=== PATIENT | male | born 1990 | race Caucasian/White ===

== ENCOUNTER 2020-07-24 15:23 | Inpatient (IN) | payer BC, SELFPAY ==
[~2020-07-24] VITALS: Ht 170.2 cm; Wt 81.6 kg
[2020-07-24 15:57] VITALS: BP 130/81
--- NOTE | 2020-07-24 16:10 | NUR ---
Patient in tent for covid precautions
--- NOTE | 2020-07-24 16:15 | NUR ---
30 y/o male from home + covid c/o cough, difficulty breathing, and body aches x 10 day. Does not appear in distress. RR even and unlabored. Skin warm and dry. Denies n/v/d. Awake and alert. VSS medhx: denies
--- NOTE | 2020-07-24 16:25 | NUR ---
Patient ambulated to bed 9
[2020-07-24 16:46] LABS: BASOPHILS % (AUTO) 0.5 % (0.0-2.0); EOSINOPHILS % (AUTO) 0.1 % (0.0-4.0); HEMATOCRIT 42.3 % (36-52); HEMOGLOBIN 14.8 g/dL (12.0-18.0); LYMPHOCYTES # (AUTO) 0.7 K/uL (2.0-11.5); LYMPHOCYTES % (AUTO) 8.3 % (20.5-51.1); MEAN CORPUSCULAR HEMOGLOBIN 32 pg (27-31); MEAN CORPUSCULAR HGB CONC 35 g/dL (33-37); MEAN CORPUSCULAR VOLUME 91.7 fL (80-94); MONOCYTES # (AUTO) 0.2 K/uL (0.8-1.0); MONOCYTES % (AUTO) 2.6 % (1.7-9.3); NEUTROPHILS # (AUTO) 7.2 K/uL (1.8-7.7); NEUTROPHILS % (AUTO) 88.5 % (42.2-75.2); PLATELET COUNT (AUTO) 261 K/uL (140-450); RED BLOOD CELL COUNT(AUTO) 4.62 MIL/uL (4.20-6.10); RED CELL DISTRIBUTION WIDTH 12.4 % (11.6-13.7); WHITE BLOOD COUNT (AUTO) 8.1 K/uL (4.8-10.8)
--- NOTE | 2020-07-24 16:47 | NUR ---
COVID, DIANE, FLU, AND RSV SWAB SENT TO LAB
--- NOTE | 2020-07-24 16:48 | NUR ---
RR 35, SPO2 98% ON RA, LABORED BREATHING
[2020-07-24] MEDS ORDERED: AZITHROMYCIN 1,000 MG in DEXTROSE 5% 500 ML IV ONE (16:55)
[2020-07-24] MEDS ORDERED: DEXAMETHASONE 10 MG/ML VIAL IVP ONE (16:55)
[2020-07-24 17:12] LABS: PROTHROMBIN TIME 10.3 secs (10.8-13.4)
[2020-07-24 17:13] LABS: ALBUMIN 3.3 g/dL (3.4-5.0); ANION GAP 11.8 (8-16); CARBON DIOXIDE 28.3 mmol/L (21-32); CREATININE 1.1 mg/dL (0.6-1.3); POTASSIUM 3.1 mmol/L (3.5-5.1); TOTAL BILIRUBIN 0.5 mg/dL (0.0-1.0)
[2020-07-24] MEDS ORDERED: cefTRIAXone 1,000 MG VIAL ONE (17:18)
[2020-07-24] MEDS ORDERED: ENOXAPARIN 40 MG/0.4 ML SYR SUBQ ONE (17:20)
[2020-07-24 17:21] LABS: C-REACTIVE PROTEIN QUANT 22.1 mg/dL (0.0-0.9)
[2020-07-24] MEDS ORDERED: POTASSIUM CHLORIDE 10 MEQ TABER PO ONE (17:25)
[2020-07-24 17:40] LABS: CKMB RELATIVE INDEX 0.1 (0.0-2.5); CREATINE KINASE MB 0.6 ng/mL (0-3.6)
[2020-07-24] MEDS ORDERED: OSELTAMIVIR PHOSPHATE 75 MG CAP PO ONE (17:55)
[2020-07-24] MEDS ORDERED: HYDROcodone/APAP 5/325 MG 1 TAB TAB PO PRN (18:55)
[2020-07-24] MEDS ORDERED: ONDANSETRON 4 MG/2 ML VIAL IM/IVP PRN (18:55)
[2020-07-24] MEDS ORDERED: ACETAMINOPHEN 325 MG TAB PO PRN (18:55)
[2020-07-24] MEDS ORDERED: SODIUM PHOS / POTASSIUM PHOS 1 PKT PDR PO PRN (18:55)
[2020-07-24] MEDS ORDERED: POTASSIUM CHLORIDE 40 MEQ, LIDOCAINE MPF 1% 25 MG in NACL 0.9% 250 ML IV PRN (18:55)
[2020-07-24] MEDS ORDERED: MAG SULF 2000 MG/WATER PREMIX 50 ML IV PRN (18:55)
[2020-07-24 18:59] LABS: APPEARANCE,URINE HAZY (CLEAR); BILIRUBIN,URINE 1+ (NEGATIVE); BLOOD, URINE NEGATIVE (NEGATIVE); COLOR,URINE YELLOW (YELLOW); LEUKOCYTE ESTERASE ,URINE NEGATIVE (NEGATIVE); NITRITE, URINE NEGATIVE (NEGATIVE); UGLUCOSE NEGATIVE (NEGATIVE)
--- NOTE | 2020-07-24 19:18 | NUR ---
REPORT GIVEN TO KEDAR COLLINS, ALONDRA OF CARE AT THIS TIME
--- NOTE | 2020-07-24 19:30 | NUR ---
RECEIVED REPORT FROM LUISANA COLLINS
[2020-07-24 19:41] LABS: MAGNESIUM 2.7 mg/dL (1.8-2.4); PHOSPHORUS 2.6 mg/dL (2.5-4.9)
--- NOTE | 2020-07-24 19:50 | NUR ---
PT O2 SAT ON R/A IS 97% HOWEVER PT STATES HE FEELS SOB, PUT N/C ON PT AT 2L, PT STATES THAT HELPED WITH THE SOB FEELING. PT REMAINS ON BEDSIDE MONITOR. RESPIRATIONS REGULAR AND EVEN. WILL CONTINUE TO MONITOR PT
[2020-07-24] MEDS ORDERED: DILTIAZEM 25 MG/5 ML VIAL IVP SCH (22:25)
[2020-07-24] MEDS ORDERED: AMIODARONE 200 MG TAB PO SCH (22:25)
--- NOTE | 2020-07-24 23:05 | NUR ---
PT RESTING QUIETLY, REMAINS ON BEDSIDE MONITOR AND O2 AT 2L. PT DENIES ANY DISTRESS AT THIS TIME.
--- NOTE | 2020-07-25 03:14 | NUR ---
PT SLEEPING. REMAINS ON BEDSIDE MONITOR. RESPIRATIONS REGULAR EVEN AND UNLABORED.
[2020-07-25] MEDS: MORPHINE SULFATE 2 MG/ML SYR IVP PRN ×2 (04:29→08:58)
--- NOTE | 2020-07-25 04:29 | NUR ---
PT C/O LOWER BACK PAIN, REQUESTED PAIN MED, MEDICATED ORDERED. PT ALSO REQUESTING SOMETHING FOR HIS COUGH, NO ORDER FOR COUGH MEDS. WILL CONTACT
[2020-07-25] MEDS ORDERED: guaiFENesin 20 MG/ML UDC PO PRN (05:30)
--- NOTE | 2020-07-25 05:33 | NUR ---
PT STATES HIS BACK IS FEELING BETTER. REPOSITIONED FOR COMFORT
--- NOTE | 2020-07-25 07:23 | NUR ---
Pt report given to GUY COLLINS. Transfer of care at this time.
--- NOTE | 2020-07-25 07:24 | NUR ---
Report received from KARINA Tan, transfer of care at this time.
--- NOTE | 2020-07-25 07:36 | NUR ---
Pt resting, HOB elevated, emptied urinal 250cc clear yellow. VSS, will continue to monitor.
--- NOTE | 2020-07-25 07:36 | NUR ---
Note peterson in EDM - 07/25/20 at 0821 by [facility] [place] Pt resting, HOB elevated, emptied urinal 250cc clear yellow. VSS, will continue to monitor.
--- NOTE | 2020-07-25 08:10 | NUR ---
PATIENT HAS BEEN SCREENED AND CATEGORIZED MODERATE NUTRITION RISK. PATIENT WILL BE SEEN WITHIN 3-5 DAYS OF ADMISSION. 07/27/20 - 07/29/[address]
--- NOTE | 2020-07-25 08:49 | NUR ---
Pt states pain 8/10 to lower back, PRN morphine given.
[2020-07-25] MEDS ORDERED: DOCUSATE SODIUM 100 MG GELCAP PO SCH (09:00)
[2020-07-25] MEDS ORDERED: ASCORBIC ACID 500 MG TAB PO SCH (09:00)
[2020-07-25] MEDS ORDERED: VITAMIN D 400 IU TAB PO SCH (09:00)
[2020-07-25] MEDS ORDERED: OSELTAMIVIR PHOSPHATE 75 MG CAP PO SCH (09:00)
[2020-07-25] MEDS ORDERED: FAMOTIDINE 20 MG TAB PO SCH (09:00)
[2020-07-25] MEDS ORDERED: DEXAMETHASONE 4 MG/ML VIAL IVP SCH (09:00)
[2020-07-25] MEDS ORDERED: ENOXAPARIN 40 MG/0.4 ML SYR SUBQ SCH (09:00)
--- NOTE | 2020-07-25 09:51 | NUR ---
Spoke with pharmacy for missing lovenox 40mg for 0900.
--- NOTE | 2020-07-25 10:20 | NUR ---
Pt resting, HOB elevated, VSS, will continue to monitor.
--- NOTE | 2020-07-25 12:34 | NUR ---
Pt awake, provided with lunch tray, HOB elevated, VSS, will continue to monitor.
--- NOTE | 2020-07-25 14:32 | NUR ---
Pt requested blanket, HOB elevated, VSS, will continue to comfort.
--- NOTE | 2020-07-25 16:54 | NUR ---
Spoke with Lu, for pt updates [phone]
--- NOTE | 2020-07-25 18:21 | NUR ---
Dr. Moseley at pt bedside for evaluation.
--- NOTE | 2020-07-25 18:28 | NUR ---
Pt sleeping on left side, HOB elevated, VSS, will continue to monitor.
--- NOTE | 2020-07-25 19:21 | NUR ---
Gave report to KARINA Hernandez, transfer of care at this time.
--- NOTE | 2020-07-25 19:21 | NUR ---
RECEIVED REPORT FROM KARINA TOVAR FOR CONTINUATION OF CARE.
[2020-07-25] MEDS ORDERED: VITD400 PO (20:13)
[2020-07-25] MEDS ORDERED: ACET-1182 PO (20:13)
[2020-07-25] MEDS ORDERED: METH4TAB1 PO (20:13)
[2020-07-25] MEDS ORDERED: DEC4 PO (20:13)
[2020-07-25] MEDS ORDERED: TAM75 PO (20:13)
[2020-07-25] MEDS ORDERED: VITC500 PO (20:13)
[2020-07-25] MEDS ORDERED: FAMO20TA13 PO (20:13)
[2020-07-25] MEDS ORDERED: ROB PO (20:13)
--- NOTE | 2020-07-25 20:45 | NUR ---
PT IS ON HIS PHONE. VISIBLE RISE AND FALL OF CHEST NOTED. NO DISTRESS NOTED. PT IS CONNECTED TO THE HEALTH UNIT CLERK. SAO2@95%. BED IS LOCKED AND IN LOWEST POSITION. SIDE RAILSX1. WILL CONTINUE TO MONITOR.
[2020-07-25 22:55] VITALS: BP 131/89
== END 2020-07-25 22:00 | disposition home or self-care (01) | DRG 177 ==
LOC: MED 15:23 → MTU 18:53
PROVIDERS: ADMIT Hospitalist; ATTEND Hospitalist
DX: U07.1 COVID-19 (principal); J12.82 Pneumonia due to coronavirus disease 2019; J80 Acute respiratory distress syndrome; E87.1 Hypo-osmolality and hyponatremia; E87.6 Hypokalemia; R73.9 Hyperglycemia, unspecified
CPT/HCPCS: 36415; 36600; 71045; 80053; 81001; 82550; 82553; 82728; 82803; 83036; 83605; 83615; 83735; 83880; 84100; 84484; 85025; 85379; 85384; 85610; 85730; 86140; 87040; 87086; 87420; 87804; 93005; J0456; J0696; J1100; J1650; J2270; J2405; J7060; U0003

== ENCOUNTER 2020-12-07 12:05 | Emergency (ER) | payer BC, SELFPAY ==
[~2020-12-07] VITALS: Ht 170.2 cm; Wt 95.3 kg
[~2020-12-07 12:05] MED LIST: ACET-1182 PO; DEC4 PO; FAMO20TA13 PO; METH4TAB1 PO; ROB PO; TAM75 PO; VITC500 PO; VITD400 PO
[2020-12-07 12:09] VITALS: BP 153/99
--- NOTE | 2020-12-07 12:19 | NUR ---
30 Y/O M BIB SELF FROM HOME, C/O SHARP CONSTANT LT SIDE PAIN FOR 3 WEEKS. DENIES N/V/D. WHEN AMBULATING OR COUGHING, PAIN INCREASES. DENIES COUGH, FEVERS, SOB AND CHEST PAIN. LUNG SOUNDS CLEAR TO AUSUCULATION. RX: TOOK IBUPROFEN 800 MG WITH RELIEF LAST NIGHT PMH: COVID (JUN 2020) ALLERGY: LATEX (SKIN SWELLING, ITCHING)
--- NOTE | 2020-12-07 12:20 | NUR ---
DR ZAMORANO AT BEDSIDE EXAMINING PT
[2020-12-07] MEDS ORDERED: ACETAMINOPHEN 325 MG TAB PO ONE (12:25)
[2020-12-07] MEDS ORDERED: KETOROLAC 60 MG/2 ML VIAL IM ONE (12:25)
--- NOTE | 2020-12-07 12:29 | NUR ---
PT TAKEN TO XRAY VIA W/C
--- NOTE | 2020-12-07 12:35 | NUR ---
PT RETURNED FROM XRAY
[2020-12-07] MEDS ORDERED: NAPR-54 PO (13:22)
[2020-12-07] MEDS ORDERED: LID5T TP (13:22)
[2020-12-07 13:25] VITALS: BP 153/99
--- NOTE | 2020-12-07 13:25 | NUR ---
Patient discharged with v/s stable. Written and verbal after care instructions given and explained. Patient alert, oriented and verbalized understanding of instructions. Ambulatory with steady gait. All questions addressed prior to discharge. ID band removed. Patient advised to follow up with PMD. Rx of LIDODERM 5% PATCH AND NAPROSYN given. Patient educated on indication of medication including possible reaction and side effects. Opportunity to ask questions provided and answered.
== END 2020-12-07 13:25 | disposition home or self-care (01) ==
LOC: MED 12:05
DX: R07.89 Other chest pain (principal); R09.1 Pleurisy; Z79.899 Other long term (current) drug therapy; Z91.040 Latex allergy status
CPT/HCPCS: 71046; 96372; 99283; J1885

== ENCOUNTER 2022-03-10 14:10 | Emergency (ER) | payer BC ==
[~2022-03-10] VITALS: Ht 170.2 cm; Wt 98.4 kg
[~2022-03-10 14:10] MED LIST changes: -ACET-1182 PO; -DEC4 PO; +LID5T TP; -METH4TAB1 PO; +NAPR-54 PO; -ROB PO; -TAM75 PO; -VITC500 PO
[2022-03-10 14:23] VITALS: BP 156/102
[2022-03-10] MEDS ORDERED: ALBUTEROL 0.083% 2.5 MG/3 ML NEBU INH ONE ×2 (14:37→14:40)
[2022-03-10] MEDS ORDERED: predniSONE 20 MG TAB PO ONE (14:40)
[2022-03-10 15:00] LABS: BASOPHILS % (AUTO) 0.3 % (0.0-2.0); EOSINOPHILS # (AUTO) 0.1 K/uL (0-0.4); EOSINOPHILS % (AUTO) 1.5 % (0.0-4.0); HEMATOCRIT 45.5 % (36-52); HEMOGLOBIN 15.9 g/dL (12.0-18.0); LYMPHOCYTES # (AUTO) 2.8 K/uL (2.0-11.5); LYMPHOCYTES % (AUTO) 42.1 % (20.5-51.1); MEAN CORPUSCULAR HEMOGLOBIN 32 pg (27-31); MEAN CORPUSCULAR HGB CONC 35 g/dL (33-37); MEAN CORPUSCULAR VOLUME 91.2 fL (80-94); MONOCYTES # (AUTO) 0.5 K/uL (0.8-1.0); MONOCYTES % (AUTO) 6.8 % (1.7-9.3); NEUTROPHILS # (AUTO) 3.3 K/uL (1.8-7.7); NEUTROPHILS % (AUTO) 49.3 % (42.2-75.2); PLATELET COUNT (AUTO) 274 K/uL (140-450); RED BLOOD CELL COUNT(AUTO) 4.99 MIL/uL (4.20-6.10); RED CELL DISTRIBUTION WIDTH 12.7 % (11.6-13.7); WHITE BLOOD COUNT (AUTO) 6.6 K/uL (4.8-10.8)
[2022-03-10 15:14] LABS: ALBUMIN 3.9 g/dL (3.4-5.0); ANION GAP 13.2 (8-16); ASPARTATE AMINOTRANSFERASE 24 U/L (15-37); CARBON DIOXIDE 24.2 mmol/L (21-32); CHLORIDE 108 mmol/L (98-107); CREATININE 0.8 mg/dL (0.6-1.3); GFR ARICAN-AMERICAN 143 mL/min (>90); GLUCOSE 98 mg/dL (74-106); POTASSIUM 3.4 mmol/L (3.5-5.1); SODIUM SERUM 142 mmol/L (136-145); TOTAL BILIRUBIN 0.5 mg/dL (0.0-1.0); UREA NITROGEN, BLOOD 9 mg/dL (7-18)
[2022-03-10] MEDS ORDERED: PRED20TA5 PO (15:45)
[2022-03-10] MEDS ORDERED: ALBU0.0912 INH (15:45)
[2022-03-10 16:19] VITALS: BP 141/82
== END 2022-03-10 16:19 | disposition home or self-care (01) ==
LOC: MED 14:10
DX: J45.909 Unspecified asthma, uncomplicated (principal); Z79.899 Other long term (current) drug therapy; Z79.1 Long term (current) use of non-steroidal anti-inflammatories (NSAID); Z91.040 Latex allergy status
CPT/HCPCS: 36415; 71045; 80053; 84484; 85025; 85379; 99284; J7512; J7613; Q0092; 94640

== ENCOUNTER 2023-04-21 13:06 | Emergency (ER) | payer BC, OTHER ==
[~2023-04-21] VITALS: Ht 170.2 cm; Wt 101.2 kg
[~2023-04-21 13:06] MED LIST changes: +ALBU0.0912 INH; +PRED20TA5 PO
[2023-04-21 14:25] VITALS: BP 144/99; PULSE 85; RESP 18; TEMP 98.3; O2SAT 96
[2023-04-21] MEDS ORDERED: ALBUTEROL SULFATE/IPRATROPIU 3 ML SOL IH ONE ×3 (14:39→16:15)
[2023-04-21 14:43] VITALS: PULSE 81; RESP 19; O2SAT 98
[2023-04-21] MEDS ORDERED: predniSONE 20 MG TAB PO ONE (14:50)
[2023-04-21 16:04] LABS: FLU A ANTIGEN negative (NEGATIVE); FLU B ANTIGEN NEGATIVE (NEGATIVE)
[2023-04-21 16:22] VITALS: PULSE 91; RESP 21; O2SAT 97
[2023-04-21] MEDS ORDERED: PRED20TA5 PO (16:31)
[2023-04-21] MEDS ORDERED: ALBU1SPR IH (16:31)
[2023-04-21 16:52] VITALS: BP 122/67; PULSE 91; RESP 21; TEMP 98.3; O2SAT 97
== END 2023-04-21 16:51 | disposition home or self-care (01) ==
LOC: MED 13:06
DX: J45.901 Unspecified asthma with (acute) exacerbation (principal); Z20.822 Contact with and (suspected) exposure to COVID-19; Z91.040 Latex allergy status; Z79.899 Other long term (current) drug therapy
CPT/HCPCS: 71046; 87426; 87804; 94640; 99284; J7512